=== PATIENT | male | born 1950 | race Caucasian/White ===

== ENCOUNTER 2021-01-06 21:12 | Emergency (ER) | payer SELFPAY ==
[~2021-01-06] VITALS: Ht 172.7 cm; Wt 87.0 kg
[2021-01-06] MEDS ORDERED: LOSA-30 PO (21:37)
[2021-01-06] MEDS ORDERED: AMLO2.5T96 PO (21:37)
[2021-01-06] MEDS ORDERED: ACETAMINOPHEN 500 MG TABLET PO ONE (22:45)
[2021-01-06] MEDS ORDERED: LIDOCAINE 1%/EPI 1:200,000/PF 10 ML VIAL ID ONE (23:00)
[2021-01-06] MEDS ORDERED: PERTUSS(ACELL),DIPH,TET VAC/PF 0.5 ML SYRINGE IM. ONE (23:00)
[2021-01-07 00:50] VITALS: BP 137/82
== END 2021-01-07 01:10 | disposition home or self-care (01) ==
LOC: EMS 21:12
DX: S01.111A Laceration without foreign body of right eyelid and periocular area, initial encounter (principal); S83.92XA Sprain of unspecified site of left knee, initial encounter; S09.90XA Unspecified injury of head, initial encounter; Z79.899 Other long term (current) drug therapy; I10 Essential (primary) hypertension; W18.39XA Other fall on same level, initial encounter; Y93.89 Activity, other specified; Y92.89 Other specified places as the place of occurrence of the external cause; Y99.8 Other external cause status
CPT/HCPCS: 12011; 70450; 72125; 90471; 90715; 99285; J3490